=== PATIENT | male | born 1935 | race Hispanic/Latino ===

== ENCOUNTER 2019-06-27 20:18 | Emergency (ER) | payer MEDICARE ==
[~2019-06-27] VITALS: Ht 182.9 cm; Wt 108.9 kg
--- NOTE | 2019-06-27 21:02 | Diagnostic Imaging Report ---
Hand limited left CPT code: 84605 Indication: Laceration from table saw Technique: left hand obtained without comparison] Findings: The area of injury is the soft tissues between the first and second digits. There is no evidence of radiopaque foreign body. The bones are diffusely demineralized. There is no evidence of fracture, dislocation, or focal osseous lesion. There are degenerative changes of the proximal and distal IP joints and the CMC joint of the first digit. Mild generative changes of the MCP joints of digits 2 through 5. IMPRESSION: No acute traumatic pathology. No radiopaque foreign bodies in the soft tissues. Signed by: Dr. Obi Mack MD on 06/27/2019 8:58 PM
[2019-06-27] MEDS ORDERED: LIDOCAINE HCL 1% 30ML-PF VIAL ONE (21:08)
[2019-06-27] MEDS ORDERED: BACITRACIN ZINC 0.9GM TP ONE (21:28)
== END 2019-06-27 21:43 | disposition home or self-care (01) ==
LOC: FSED 20:18
DX: S61.412A Laceration without foreign body of left hand, initial encounter (principal); Z95.1 Presence of aortocoronary bypass graft; I10 Essential (primary) hypertension; E78.5 Hyperlipidemia, unspecified; W27.0XXA Contact with workbench tool, initial encounter; Y93.H3 Activity, building and construction; Y92.009 Unspecified place in unspecified non-institutional (private) residence as the place of occurrence of the external cause
CPT/HCPCS: 12002; 73120; 99283; J2001

== ENCOUNTER 2021-01-04 18:39 | Observation (INO) | payer MEDICARE ==
[~2021-01-04] VITALS: Ht 172.7 cm; Wt 95.7 kg
[2021-01-04] MEDS ORDERED: MORPHINE SULFATE INJ 4 MG/ML INJ 1ML IV STA (18:58)
[2021-01-04] MEDS ORDERED: SODIUM CHLORIDE 0.9% 500ML 500 ML IV STA ×2 (18:58→19:47)
[2021-01-04] MEDS ORDERED: ONDANSETRON HCL INJ 2MG/ML 2ML 2 MG/ML VIAL IV ONE (19:00)
[2021-01-04] MEDS ORDERED: KETOROLAC TROMETHAMINE 30 MG/ML VIAL IV ONE (19:00)
[2021-01-04] MEDS ORDERED: PROPOFOL IV EMULSION 10MG/ML 100ML BTL IV STA (19:47)
[2021-01-04] MEDS ORDERED: TYLENOL # 31 EA PO (19:56)
[2021-01-04] MEDS ORDERED: IBUPROFEN IB200 MG PO (19:56)
[2021-01-04] MEDS ORDERED: ONDANSETRON ODT4 MG PO (19:56)
[2021-01-04] MEDS ORDERED: KETOROLAC TROMETHAMINE 30 MG/ML VIAL ONE (19:57)
[2021-01-04] MEDS ORDERED: ONDANSETRON HCL INJ 2MG/ML 2ML 2 MG/ML VIAL ONE (19:57)
[2021-01-04] MEDS ORDERED: MORPHINE SULFATE INJ 4 MG/ML INJ 1ML ONE (19:58)
[2021-01-04] MEDS ORDERED: SODIUM CHLORIDE 0.9% 500ML 500 ML ONE ×2 (19:58→20:00)
[2021-01-04] MEDS ORDERED: PROPOFOL IV EMULSION 10 MG/ML 20 ML VIAL ONE (19:59)
[2021-01-04] MEDS ORDERED: FAMOTIDINE 20 MG/2 ML VIAL IV ONE ×2 (20:00)
[2021-01-04] MEDS ORDERED: ATROPINE SULFATE 1 MG/ML VIAL IV ONE (20:45)
[2021-01-04] MEDS ORDERED: ATROPINE SULFATE 0.1 MG/ML 10ML SYR IV ONE (20:45)
[2021-01-04] MEDS ORDERED: ATROPINE SULFATE 0.1 MG/ML 10ML SYR ONE (20:47)
[2021-01-04] MEDS ORDERED: SODIUM CHLORIDE FLUSH 10 ML SYR INJ PRN (21:15)
[2021-01-04] MEDS ORDERED: ASPIRIN 81 MG CHEW TAB PO ONE (21:15)
[2021-01-04] MEDS ORDERED: ASPIRIN 81 MG CHEW TAB ONE (21:55)
[2021-01-04] MEDS ORDERED: SODIUM CHLORIDE 0.9% 1000ML 1,000 ML ONE (23:15)
[2021-01-04 23:38] VITALS: BP 151/79
[2021-01-04 23:45] VITALS: BP 151/79
[2021-01-05] VITALS (7 sets, daily range): BP systolic 151–170; BP diastolic 76–86
[2021-01-05] MEDS ORDERED: HYDROMORPHONE 1MG/1ML INJ IV PRN (00:15)
[2021-01-05] MEDS ORDERED: NAMENDA10 MG PO (02:44)
[2021-01-05] MEDS ORDERED: ISOSORBIDE MONO30 MG PO (02:44)
[2021-01-05] MEDS ORDERED: DIOVAN80 MG PO (02:44)
[2021-01-05] MEDS ORDERED: METOPROLOL TART25 MG PO (02:44)
[2021-01-05] MEDS ORDERED: MELOXICAM7.5 MG PO (02:44)
[2021-01-05 08:09] LABS: CREATINE KINASE MB 4.7 ng/mL (0-5.0)
[2021-01-05] MEDS: ASPIRIN 81 MG ENTERIC COATED PO SCH (10:16)
[2021-01-05] MEDS ORDERED: ACETAMINOPHEN/CODEINE 300MG - 30MG TAB PO PRN (12:45)
[2021-01-05] MEDS ORDERED: ONDANSETRON HCL 4 MG ORAL DISINTEGRATING TAB PO PRN (12:45)
[2021-01-05 12:52] LABS: BASOPHILS % 0.5 % (0.0-1.0); EOSINOPHILS # (AUTO) 0.2 (0.0-0.4); EOSINOPHILS % 2.4 % (0.0-6.0); HEMATOCRIT 38.1 % (38.2-49.6); HEMOGLOBIN 12.4 g/dL (14.0-18.0); LYMPHOCYTES # (AUTO) 1.4 (1.0-3.2); LYMPHOCYTES % 17.5 % (18.0-39.1); MEAN CORPUSCULAR HEMOGLOBIN 30.2 pg (28-32); MEAN CORPUSCULAR HGB CONC 32.5 g/dL (31-35); MEAN CORPUSCULAR VOLUME 92.7 fL (81-99); MONOCYTES # (AUTO) 0.8 (0.2-0.8); MONOCYTES % 9.7 % (4.4-11.3); NEUTROPHILS # (AUTO) 5.5 (2.1-6.9); NEUTROPHILS % 69.5 % (38.7-80.0); PLATELET COUNT 110 x10e3/uL (140-360); RED BLOOD COUNT 4.11 x10e6/uL (4.3-5.7); RED CELL DISTRIBUTION WIDTH 13.8 % (11.7-14.4)
[2021-01-05] MEDS ORDERED: IBUPROFEN 400 MG TAB PO PRN (13:00)
[2021-01-05 13:06] LABS: ALANINE AMINOTRANSFERASE 9 IU/L (0-55); ALBUMIN 3.3 g/dL (3.5-5.0); ALKALINE PHOSPHATASE 51 IU/L (40-150); ANION GAP 14.5 mmol/L (8-16); BLOOD UREA NITROGEN 21 mg/dL (7-26); BUN/CREATININE RATIO 23 (6-25); CALCIUM 8.5 mg/dL (8.4-10.2); CARBON DIOXIDE 20 mmol/L (22-29); CHLORIDE 108 mmol/L (98-107); EST GLOMERULAR FILTRATION RATE > 60 ML/MIN (60-); GLUCOSE 97 mg/dL (74-118); POTASSIUM 4.5 mmol/L (3.5-5.1); SODIUM 138 mmol/L (136-145)
[2021-01-05 14:17] LABS: CHOL/HDL RATIO 5.2 (3.9-4.7)
[2021-01-05] MEDS: HYDRALAZINE HCL 25 MG TAB PO SCH ×2 (14:52→21:22)
[2021-01-05 18:26] LABS: CREATINE KINASE MB 3.6 ng/mL (0-5.0)
[2021-01-06 01:09] VITALS: BP 157/78
[2021-01-06 08:00] VITALS: BP 162/78
[2021-01-06 08:29] VITALS: BP 162/78
[2021-01-06] MEDS ORDERED: MELOXICAM 7.5 MG TAB PO SCH (09:00)
[2021-01-06] MEDS ORDERED: VALSARTAN 80 MG TAB PO SCH (09:00)
[2021-01-06] MEDS ORDERED: ISOSORBIDE MONONITRATE 30 MG TAB CR PO SCH (09:00)
[2021-01-06] MEDS ORDERED: MEMANTINE 10 MG TAB PO SCH (09:00)
[2021-01-06] MEDS: ASPIRIN 81 MG ENTERIC COATED PO SCH (09:13)
[2021-01-06] MEDS: HYDRALAZINE HCL 25 MG TAB PO SCH ×2 (09:13→14:07)
[2021-01-06 12:00] VITALS: BP_SYST 127; BP_SYST 141; BP_DIAS 70; BP_DIAS 79
[2021-01-06 16:00] VITALS: BP 134/77
== END 2021-01-06 17:48 | disposition home or self-care (01) ==
LOC: FSED 19:00 → ERHOLD 21:12 → MED/SURG2 22:38
PROVIDERS: ADMIT Internal Medicine; ATTEND Internal Medicine
DX: S43.005A Unspecified dislocation of left shoulder joint, initial encounter (principal); I10 Essential (primary) hypertension; E78.5 Hyperlipidemia, unspecified; Z95.1 Presence of aortocoronary bypass graft; Z20.822 Contact with and (suspected) exposure to COVID-19; I25.10 Atherosclerotic heart disease of native coronary artery without angina pectoris; F03.90 Unspecified dementia, unspecified severity, without behavioral disturbance, psychotic disturbance, mood disturbance, and anxiety; E66.9 Obesity, unspecified; Z68.32 Body mass index [BMI] 32.0-32.9, adult; E11.9 Type 2 diabetes mellitus without complications; R00.1 Bradycardia, unspecified
CPT/HCPCS: 23650; 36415 ×2; 73020; 73030; 73202; 80053 ×2; 80061; 82550; 82553 ×2; 82948; 83036; 83735; 84484 ×2; 85025 ×2; 93005; 97116; 97161; 99284; G0378 ×3; J1885; J2270; J2405; J2704 ×2; J7030; J7040; U0002